=== PATIENT | male | born 1935 | race Caucasian/White ===

== ENCOUNTER 2017-03-30 08:49 | Day surgery (SDC) | payer MEDICARE, OTHER ==
[2017-03-27 15:20] LABS: BLOOD UREA NITROGEN 23 mg/dL (7-18)
[2017-03-27 15:23] LABS: ASPARTATE AMINO TRANSFERASE 57 U/L (15-37)
[~2017-03-30] VITALS: Ht 167.6 cm; Wt 80.2 kg
[~2017-03-30 08:49] MED LIST: [UNRECOGNIZED DRUG - OTHER] PO
[2017-03-30] MEDS ORDERED: LACTATED RINGERS 1,000 ML IV SCH (09:10)
[2017-03-30] MEDS ORDERED: [UNRECOGNIZED DRUG - OTHER] PO (09:11)
[2017-03-30 09:13] VITALS: BP 130/86
[2017-03-30] MEDS ORDERED: CEFAZOLIN 1,000 MG ONE (09:56)
[2017-03-30] MEDS ORDERED: ONDANSETRON 2MG/ML, 2ML ONE (09:56)
[2017-03-30] MEDS ORDERED: SUCCINYLCHOLINE 20 MG/ML, 10ML ONE (09:56)
[2017-03-30] MEDS ORDERED: DEXAMETHASONE 4 MG/ML, 1ML ONE (09:56)
[2017-03-30] MEDS ORDERED: PROPOFOL 10 MG/ML, 20ML ONE (09:56)
[2017-03-30] MEDS ORDERED: NEOSTIGMINE 1 MG/ML, 10ML ONE (09:56)
[2017-03-30] MEDS ORDERED: GLYCOPYRROLATE 0.2MG/1ML, 5ML ONE (09:56)
[2017-03-30] MEDS ORDERED: ROCURONIUM 10 MG/ML ONE (09:56)
[2017-03-30] MEDS ORDERED: MIDAZOLAM 1 MG/ML, 2ML ONE (10:00)
[2017-03-30] MEDS ORDERED: FENTANYL PF 100 MCG/2ML ONE ×3 (10:00→10:51)
[2017-03-30] MEDS ORDERED: METOPROLOL 1 MG/ML, 5ML IV PRN (10:30)
[2017-03-30] MEDS ORDERED: HYDROcodone/APAP 7.5-325MG/15ML UDC PO PRN (10:30)
[2017-03-30] MEDS ORDERED: OXYcodone 5 MG/5 ML ORAL.SOL UDC PO PRN (10:30)
[2017-03-30] MEDS ORDERED: hydrALAzine 20 MG/ML, 1ML IV PRN (10:30)
[2017-03-30] MEDS ORDERED: ALBUTEROL SULFATE 2.5 MG/3 ML NPPB PRN (10:30)
[2017-03-30] MEDS ORDERED: ACETAMINOPHEN 325 MG TABLET PO PRN ×2 (10:30→17:00)
[2017-03-30] MEDS ORDERED: PROMETHAZINE 25 MG/ML, 1ML IV PRN (10:30)
[2017-03-30] MEDS ORDERED: HYDROmorphone 1 MG/ML, 1ML IV PRN (10:30)
[2017-03-30] MEDS ORDERED: ONDANSETRON 2MG/ML, 2ML IVPush PRN ×2 (10:30→14:00)
[2017-03-30] MEDS ORDERED: EPHEDRINE 50 MG/ML, 1ML IVPush PRN (10:30)
[2017-03-30] MEDS ORDERED: LABETALOL 5MG/ML, 20ML IV PRN (10:30)
[2017-03-30] MEDS ORDERED: ACETAMINOPHEN 325 MG TABLET ONE (10:51)
[2017-03-30] MEDS ORDERED: ACETAMINOPHEN 650 MG/20.3 ML UDC ONE (10:51)
[2017-03-30] MEDS ORDERED: OXYcodone 5 MG/5 ML ORAL.SOL UDC ONE (10:52)
[2017-03-30] MEDS: FENTANYL PF 100 MCG/2ML IV PRN ×2 (11:00→11:20)
[2017-03-30] MEDS ORDERED: ONDANSETRON ODT 4 MG PO PRN (14:00)
[2017-03-30] MEDS ORDERED: ZOLPIDEM 5MG TABLET PO PRN (14:00)
[2017-03-30] MEDS ORDERED: HYDROcodone/APAP 5/325 TABLET PO PRN (15:00)
[2017-03-30] MEDS: CEFAZOLIN PMX 1GM/50ML 50 ML IV SCH (18:03)
[2017-03-30 18:41] VITALS: BP 97/69
[2017-03-30] MEDS: LACTATED RINGERS 1,000 ML IV SCH (23:36)
[2017-03-31] MEDS: CEFAZOLIN PMX 1GM/50ML 50 ML IV SCH (01:44)
[2017-03-31 08:13] VITALS: BP 91/53
[2017-03-31] MEDS: LACTATED RINGERS 1,000 ML IV SCH (13:00)
[2017-03-31] MEDS ORDERED: HYDR-3237 PO (15:12)
[2017-03-31 15:30] VITALS: BP 98/63
== END 2017-03-31 15:35 | disposition home or self-care (01) ==
LOC: OUT 08:49 → 4NOR 13:13 → OUT 22:52 → 4NOR 22:53 → UNDOADMIN 22:53 → OUT 03-31 15:35
PROVIDERS: ATTEND Urology
DX: C67.9 Malignant neoplasm of bladder, unspecified (principal); C61 Malignant neoplasm of prostate; J45.909 Unspecified asthma, uncomplicated; Z90.49 Acquired absence of other specified parts of digestive tract; Z87.891 Personal history of nicotine dependence
CPT/HCPCS: 36415; 52235; 80053; 81001; 87086; 88307; 88341; 88342; 93005; J0330; J0690; J1100; J2250; J2405; J2704; J2710; J3010; J7120; J3490; G0461

== ENCOUNTER 2017-04-01 07:50 | Emergency (ER) | payer MEDICARE, OTHER ==
[~2017-04-01] VITALS: Ht 167.6 cm; Wt 79.4 kg
[~2017-04-01 07:50] MED LIST changes: +HYDR-3237 PO; +[UNRECOGNIZED DRUG - OTHER] PO
[2017-04-01] MEDS ORDERED: SODIUM CHLORIDE 0.9% 1,000 ML IV ONE (08:37)
[2017-04-01 08:55] LABS: HEMATOCRIT 39.9 % (39.2-51.8); HEMOGLOBIN 13.6 g/dL (13.7-18.0); WHITE BLOOD COUNT 8.2 x10^3/uL (3.4-10)
[2017-04-01] MEDS ORDERED: SODIUM CHLORIDE FLUSH 10ML SYR IVF ONE (09:00)
[2017-04-01 09:05] LABS: BLOOD UREA NITROGEN 23 mg/dL (7-18)
[2017-04-01 09:23] VITALS: BP 118/69
== END 2017-04-01 11:20 | disposition home or self-care (01) ==
LOC: ED 11:00
DX: N40.1 Benign prostatic hyperplasia with lower urinary tract symptoms (principal); R33.8 Other retention of urine; R31.0 Gross hematuria
CPT/HCPCS: 36415; 51702; 80048; 81001; 82040; 85025; 85610; 87086; 96360; 96361; 99285; J7030